=== PATIENT | female | born 2000 | race African-American/Black ===

== ENCOUNTER 2024-04-10 21:19 | Inpatient (IN) | payer OTHER ==
[~2024-04-10] VITALS: Ht 167.6 cm; Wt 73.4 kg
[2024-04-10 22:26] LABS: Urine Bacteria None Seen /hpf (None Seen)
[2024-04-10 22:27] LABS: Basophils # (auto) 0.1 10 ^3/uL (0-0.2); Basophils % (auto) 0.8 % (0.0-2.0); Eosinophils # (auto) 0.1 10 ^3/uL (0-0.8); Eosinophils % (auto) 0.3 % (0.0-7.0); Hematocrit 37.8 % (36.0-46.0); Hemoglobin 11.6 g/dL (12.2-16.2); Lymphocytes # (auto) 3.7 10 ^3/uL (0.4-5.4); Lymphocytes % (auto) 21.6 % (10.0-50.0); Mean Corpuscular Hemoglobin 22.1 pg (28.0-32.0); Mean Corpuscular Hgb Conc. 30.8 g/dL (32.0-36.0); Mean Corpuscular Volume 71.9 fL (80.0-100.0); Monocytes % (auto) 5.8 % (0.0-12.0); Neutrophils # (auto) 12.1 10 ^3/uL (1.6-8.6); Neutrophils % (auto) 71.5 % (37.0-80.0); Red Blood Cells 5.26 10^6/uL (4.0-5.20); Red Cell Distribution Width 14.6 % (11.8-14.3)
[2024-04-10 22:47] LABS: Urine Blood 3+ /uL (Negative); Urine Clarity Turbid (Clear); Urine Color Light-Orange (Yellow); Urine Mucus FEW (None Seen); Urine Protein, UAD 2+ (Negative); Urine Specific Gravity 1.027 (1.001-1.035); Urine Urobilinogen Normal (Negative); Urine WBC 392 /hpf (0 - 5)
[2024-04-11 00:28] VITALS: PULSE 73; RESP 18; TEMP 98.6; O2SAT 100
[2024-04-11] MEDS: cefTRIAXone SOD 1,000 MG VL IM ONE (02:15)
[2024-04-11 04:15] LABS: Basophils # (auto) 0.1 10 ^3/uL (0-0.2); Basophils % (auto) 0.5 % (0.0-2.0); Eosinophils # (auto) 0.1 10 ^3/uL (0-0.8)
[2024-04-11 04:16] LABS: Eosinophils % (auto) 0.5 % (0.0-7.0); Hematocrit 35.4 % (36.0-46.0); Lymphocytes # (auto) 3.2 10 ^3/uL (0.4-5.4); Lymphocytes % (auto) 23.7 % (10.0-50.0); Mean Corpuscular Hemoglobin 22.2 pg (28.0-32.0); Mean Corpuscular Volume 71.6 fL (80.0-100.0); Monocytes % (auto) 7.3 % (0.0-12.0); Neutrophils # (auto) 9.2 10 ^3/uL (1.6-8.6); Red Blood Cells 4.94 10^6/uL (4.0-5.20); Red Cell Distribution Width 14.5 % (11.8-14.3); White Blood Cell 13.6 10^3/uL (4.4-10.8)
[2024-04-11] MEDS: LACTATED RINGER'S 1,000 ML IV ONE (04:18)
[2024-04-11 04:30] LABS: INR 1.02 (0.9-1.15); Partial Thromboplastin Time 27.5 SEC (24.5-34.5); Prothrombin Time 10.8 sec (9.3-11.8)
[2024-04-11 04:32] LABS: Alanine Aminotransferase 14 U/L (7-40); Alkaline Phosphatase 60 U/L (46-116); Anion Gap 7 (5-15); Aspartate Aminotransferase 19 U/L (13-40); BUN/Creatinine Ratio 7.9 (10.0-20.0); Blood Urea Nitrogen 6 mg/dL (9-23); Calcium 9.4 mg/dL (8.7-10.4); Carbon Dioxide 22 mmol/L (20-30); Chloride 107 mmol/L (98-107); Glucose 111 mg/dL (74-106); Potassium 3.1 mmol/L (3.5-5.1); Sodium 136 mmol/L (136-145)
[2024-04-11 04:33] LABS: Bilirubin, Total 0.5 mg/dL (0.2-1.0); Total Protein 6.5 g/dL (5.7-8.2)
[2024-04-11] MEDS ORDERED: MORPHINE SULFATE INJ 2 MG/ml SYRG IV PRN (05:15)
[2024-04-11] MEDS ORDERED: ONDANSETRON HCL 4 MG/2 ML VIAL IV PRN (05:15)
[2024-04-11 06:00] VITALS: BP 96/58; PULSE 61; RESP 16; O2SAT 99
[2024-04-11] MEDS: SODIUM CHLORIDE 0.9% 1,000 ML IV SCH (06:09)
[2024-04-12] MEDS ORDERED: cefTRIAXone 1GM/50ML D5W 50 ML IV SCH (02:00)
== END 2024-04-11 08:12 | disposition left against medical advice (07) | DRG 831 ==
LOC: ER 21:19 → OVERFLOW 04-11 05:05
PROVIDERS: ADMIT Nurse Practitioner; ATTEND Nurse Practitioner
DX: O00.101 Right tubal pregnancy without intrauterine pregnancy (principal); A41.9 Sepsis, unspecified organism; N39.0 Urinary tract infection, site not specified; D64.9 Anemia, unspecified; E87.6 Hypokalemia
CPT/HCPCS: 36415; 76817; 80053; 81001; 84702; 85025; 85610; 85730; 86850; 86900; 86901; 96360; 96361; 96372; G0378; J0696